=== PATIENT | female | born 1990 | race African-American/Black ===

== ENCOUNTER 2016-08-18 21:04 | Emergency (ER) | payer BC, MEDICAID ==
[~2016-08-18] VITALS: Ht 160 cm; Wt 51.0 kg
[~2016-08-18 21:04] MED LIST: ONDA4TAB35 PO; TRAM50TA2 PO
[2016-08-18 21:09] VITALS: Ht 160 cm; Wt 51.0 kg
[2016-08-18 23:04] LABS: URINE BLOOD (Dip) POC Trace-intact (NEGATIVE)
[2016-08-18 23:07] LABS: ADD SCAN DIFF NO
[2016-08-18 23:08] LABS: BASOPHILS % 0.4 % (0.0-2.0); EOSINOPHILS # 0.1 10^3/ul (0.0-0.5); EOSINOPHILS % 0.9 % (0.0-7.0); HEMATOCRIT 35.8 % (37.0-47.0); HEMOGLOBIN 11.7 g/dl (12.0-16.0); LYMPHOCYTES # 2.7 10^3/ul (0.8-2.9); LYMPHOCYTES % 35.5 % (15.0-51.0); MEAN CORPUSCULAR HEMOGLOBIN 28.1 pg (29.0-33.0); MEAN CORPUSCULAR HGB CONC 32.7 g/dl (32.0-37.0); MEAN CORPUSCULAR VOLUME 86.1 fl (82.0-101.0); MEAN PLATELET VOLUME 9.8 fl (7.4-10.4); MONOCYTE # 0.5 10^3/ul (0.3-0.9); MONOCYTES % 6.8 % (0.0-11.0); NEUTROPHIL # 4.3 10^3/ul (1.6-7.5); NEUTROPHILS % 56.1 % (39.0-77.0); PLATELET COUNT 283 10^3/UL (140-415); RED BLOOD COUNT 4.16 10^6/ul (4.20-5.40); RED CELL DISTRIBUTION WIDTH 13.2 % (11.5-14.5); WHITE BLOOD COUNT 7.7 10^3/ul (4.8-10.8)
[2016-08-18] MEDS ORDERED: ONDANSETRON 4 MG INJ IV STA (23:14)
[2016-08-18 23:19] LABS: ADD UMIC NO; URINE BILIRUBIN (Dip) NEGATIVE (NEGATIVE); URINE BLOOD (Dip) NEGATIVE (NEGATIVE); URINE COLOR LT. YELLOW (YELLOW); URINE GLUCOSE (Dip) NEGATIVE (NEGATIVE); URINE KETONES (Dip) TRACE (NEGATIVE); URINE LEUKOCYTE ESTERASE (Dip) NEGATIVE (NEGATIVE); URINE NITRITE (Dip) NEGATIVE (NEGATIVE); URINE TOTAL PROTEIN (Dip) NEGATIVE (NEGATIVE); URINE UROBILINOGEN (Dip) 0.2 E.U./dL (0.1-1.0)
[2016-08-18 23:28] LABS: ALBUMIN 4.8 g/dl (3.3-4.9); ALBUMIN/GLOBULIN RATIO 1.17; BILIRUBIN,INDIRECT 0.7 mg/dl (0-1.1); BILIRUBIN,TOTAL 0.7 mg/dl (0.2-1.3); CALCIUM 9.6 mg/dl (8.4-10.2); CREATININE 0.84 mg/dl (0.44-1.00); POTASSIUM 3.8 mmol/L (3.5-5.1); TOTAL PROTEIN 8.9 g/dl (6.1-8.1)
[2016-08-18] MEDS ORDERED: KETOROLAC 15 MG INJ IV STA (23:29)
[2016-08-18] MEDS ORDERED: SOD CHLORIDE 0.9% 1,000 ML IV ONE (23:30)
--- NOTE | 2016-08-19 00:04 | ERA ---
ER Documentation Chief Complaint Date/Time DATE: 08/19/16 TIME: 00:02 Chief Complaint AP, CWP Body ache since 12 noon HPI 26-year-old female with a chief complaint of abdominal pain. Patient describes the pain is getting worse with leaning down and laying down on back. Patient describes having seen multiple doctors over the past few years for a multitude of conditions without any definitive diagnosis is found. Patient is also asking for pain medications and describing a high pain tolerance that is being exceeded by her current pain. Patient denies any medical conditions. Patient has not taken any medications to this time to relieve the symptoms. ROS All systems reviewed and are negative except as per history of present illness. Medications Home Meds Active Scripts Ranitidine Hcl* (Zantac*) 150 Mg Tablet, 150 MG PO BID Y for EPIGASTRIC PAIN, # 30 TAB Prov:MICHELLE BARRIGA PA-C 08/19/16 Ondansetron Hcl* (Zofran* ODT) 4 mg -ODT Tab.disper, 4 MG PO Q6 Y for NAUSEA AND /OR VOMITING, #10 TAB Prov:JULIO IVORY 10/07/14 Tramadol HCl (Tramadol HCl) 50 Mg Tab, 50 MG PO Q4 Y for PAIN, #20 TAB Prov:JULIO IVORY 10/07/14 Allergies Allergies: Coded Allergies: No Known Allergy (Unverified , 10/06/14) PMhx/Soc History of Surgery: No (DENIES MEDICAL AND SURGICAL HX.) Anesthesia Reaction: No Hx Neurological Disorder: No Hx Respiratory Disorders: No Hx Cardiac Disorders: No Hx Psychiatric Problems: No Hx Miscellaneous Medical Probl: No Hx Alcohol Use: Yes (SOCIALLY) Hx Substance Use: No Hx Tobacco Use: No Smoking Status: Never smoker Physical Exam Vitals Vital Signs Date Time Temp Pulse Resp B/P Pulse Ox O2 Delivery O2 Flow Rate FiO2 08/18/16 21:09 98.1 92 20 129/77 99 Physical Exam Const: Well-appearing well-developed 26-year-old female. Head: Atraumatic Eyes: Normal Conjunctiva ENT: Normal External Ears, Nose and Mouth. Neck: Full range of motion..~ No meningismus. Resp: Clear to auscultation bilaterally Cardio: Regular rate and rhythm, no murmurs Abd: Extreme tenderness palpation. Soft and nondistended. Normal bowel sounds in all 4 quadrants. No rebound tenderness. Skin: No petechiae or rashes Back: No midline or flank tenderness Ext: No cyanosis, or edema Neur: Awake and alert Psych: Normal Mood and Affect Result Diagram: 08/18/16225508/18/162255 Results 24 hrs Laboratory Tests Test 08/18/16 22:56 08/18/16 23:06 White Blood Count 7.710^3/ul Red Blood Count 4.1610^6/ul Hemoglobin 11.7g/dl Hematocrit 35.8% Mean Corpuscular Volume 86.1fl Mean Corpuscular Hemoglobin 28.1pg Mean Corpuscular Hemoglobin Concent 32.7g/dl Red Cell Distribution Width 13.2% Platelet Count 15828^3/UL Mean Platelet Volume 9.8fl Neutrophils % 56.1% Lymphocytes % 35.5% Monocytes % 6.8% Eosinophils % 0.9% Basophils % 0.4% Nucleated Red Blood Cells % 0.0/100WBC Neutrophils # 4.310^3/ul Lymphocytes # 2.710^3/ul Monocytes # 0.510^3/ul Eosinophils # 0.110^3/ul Basophils # 0.010^3/ul Nucleated Red Blood Cells # 0.010^3/ul Urine Color LT. YELLOW Urine Clarity CLEAR Urine pH 6.5 Urine Specific [place] 1.020 Urine Ketones TRACE Urine Nitrite NEGATIVE Urine Bilirubin NEGATIVE Urine Urobilinogen 0.2 E.U./dL Urine Leukocyte Esterase NEGATIVE Urine Hemoglobin NEGATIVE Urine Glucose NEGATIVE% Urine Total Protein NEGATIVE Sodium Level 137mmol/L Potassium Level 3.8mmol/L Chloride Level 102mmol/L Carbon Dioxide Level 26mmol/L Anion Gap 13 Blood Urea Nitrogen 16mg/dl Creatinine 0.84mg/dl Glucose Level 92mg/dl Calcium Level 9.6mg/dl Total Bilirubin 0.7mg/dl Direct Bilirubin 0.00mg/dl Indirect Bilirubin 0.7mg/dl Aspartate Amino Transf (AST/SGOT) 42IU/L Alanine Aminotransferase (ALT/SGPT) 36IU/L Alkaline Phosphatase 50IU/L Total Protein 8.9g/dl Albumin 4.8g/dl Globulin 4.10g/dl Albumin/Globulin Ratio 1.17 Lipase 57U/L Bedside Urine pH (LAB) 6.5 Bedside Urine Protein (LAB) Negative Bedside Urine Glucose (UA) Negative Bedside Urine Ketones (LAB) Negative Bedside Urine Blood Trace-intact Bedside Urine Nitrite (LAB) Negative Bedside Urine Leukocyte Esterase (L Negative Current Medications Medications (Trade) Dose Ordered Sig/Zen Route PRN Reason Start Time Stop Time Status Last Admin Dose Admin Sodium Chloride (NS) 1,000 ml @ 1,000 mls/hr Q1H ONCE IV 08/18/16 23:30 08/19/16 00:29 08/18/16 23:20 Ondansetron HCl (Zofran Inj) 4 mg ONCE STAT IV 08/18/16 23:14 08/18/16 23:16 DC 08/18/16 23:21 Ketorolac Tromethamine (Toradol) 15 mg ONCE STAT IV 08/18/16 23:29 08/18/16 23:30 DC 08/18/16 23:33 Procedures/MDM Patient is being worked up for abdominal pain. Patient's labs were within normal limits. Most likely diagnosis is abdominal pain versus drug-seeking behavior. At this time a very low suspicion for intestinal ischemia, abdominal aortic aneurysm, appendicitis, pancreatitis, or pathology of the gallbladder. I have presented the case to my attending Dr. Gonzales and he agrees with assessment and plan. Patient's vitals are stable and current condition is appropriate for discharge. Departure Diagnosis: Primary Impression: Abdominal pain Qualified Code: R10.84 - Generalized abdominal pain Condition: Stable Additional Instructions: Follow up with your PCP within the next 1-3 days for a more thorough evaluation and a possible referral to a specialist. Return the the emergency department immediately if symptoms worsen or change. If you have any questions regarding medications, ask your pharmacist or us before you leave. If any adverse reactions occur while taking your medications, discontinue the treatment and return to the emergency department immediately. Take your medications as directed, and complete the entire course of treatment. MICHELLE BARRIGA PA-C August 19, 2016 00:04
[2016-08-19] MEDS ORDERED: RANI150T9 PO (00:16)
== END 2016-08-19 01:16 | disposition home or self-care (01) ==
LOC: FTE 21:04
DX: R10.84 Generalized abdominal pain (principal)
CPT/HCPCS: 36415; 80053; 81003; 83690; 85025; 93005; 96374; 96375; 99284; J1885; J2405; J7030